=== PATIENT | male | born 1955 | race American Indian/Alaskan Native ===

== ENCOUNTER 2020-12-19 20:01 | Emergency (ER) | payer BC, OTHER ==
[2020-12-19 22:28] VITALS: BP 119/82
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
[2020-12-20] MEDS ORDERED: ACETAMINOPHEN 500 MG TAB PO ONE (00:48)
[2020-12-20] MEDS ORDERED: IBUPROFEN 600 MG TAB PO ONE (00:48)
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
== END 2020-12-20 01:15 | disposition home or self-care (01) ==
LOC: ED 20:01
DX: S43.401A Unspecified sprain of right shoulder joint, initial encounter (principal); S46.911A Strain of unspecified muscle, fascia and tendon at shoulder and upper arm level, right arm, initial encounter; Z79.899 Other long term (current) drug therapy; Z98.890 Other specified postprocedural states; V49.49XA Driver injured in collision with other motor vehicles in traffic accident, initial encounter; Y92.410 Unspecified street and highway as the place of occurrence of the external cause; Y93.89 Activity, other specified; Y99.8 Other external cause status
CPT/HCPCS: 99283